=== PATIENT | male | born 1970 | race Caucasian/White ===

== ENCOUNTER 2018-03-28 08:10 | Inpatient (IN) | payer BC ==
[~2018-03-28] VITALS: Ht 170.2 cm; Wt 68.0 kg
[2018-03-28 08:16] VITALS: BP_SYST 132
[2018-03-28] MEDS ORDERED: KETOROLAC TROMETHAMINE 30 MG VIAL IVP ONE (08:45)
[2018-03-28] MEDS ORDERED: ACETAMINOPHEN 650 MG/20.3 ML UDC NG PRN (09:30)
[2018-03-28] MEDS ORDERED: CIPROFLOXACIN LACT 400 MG/D5W 200 ML IV ONE (09:30)
[2018-03-28] MEDS ORDERED: metroNIDAZOLE 500 mg/NS 100 ML IV ONE (09:30)
[2018-03-28] MEDS ORDERED: MORPHINE 2 MG/ML INJ. SYRINGE IVP PRN (09:30)
[2018-03-28] MEDS ORDERED: ONDANSETRON HCL 4 MG/2 ML VIAL IVP PRN ×2 (09:30)
[2018-03-28] MEDS ORDERED: CIPR-211 PO (09:32)
[2018-03-28] MEDS ORDERED: METR500T PO (09:32)
[2018-03-28 09:43] LABS: BASOPHILS # (AUTO) 0.1 K/uL (0.0-0.2); BASOPHILS % (AUTO) 0.6 % (0.0-2.0); EOSINOPHILS # (AUTO) 0.2 K/uL (0.0-0.4); EOSINOPHILS % (AUTO) 2.2 % (0.0-4.0); HEMATOCRIT 45.5 % (36-54); HEMOGLOBIN 15.4 g/dL (14.0-18.0); LYMPHOCYTES # (AUTO) 0.6 K/uL (1.0-5.5); LYMPHOCYTES % (AUTO) 6.6 % (20.5-51.5); MEAN CORPUSCULAR HEMOGLOBIN 30 pg (27-31); MEAN CORPUSCULAR HGB CONC 34 % (32-36); MEAN CORPUSCULAR VOLUME 89 fL (79.0-98.0); MONOCYTES # (AUTO) 0.4 K/uL (0.0-1.0); NEUTROPHILS # (AUTO) 7.3 K/uL (1.8-7.7); NEUTROPHILS % (AUTO) 85.6 % (40.0-70.0); PLATELET COUNT (AUTO) 321 K/uL (130-430); RED BLOOD CELL COUNT(AUTO) 5.09 MIL/uL (4.2-6.2); RED CELL DISTRIBUTION WIDTH 12.1 % (9.0-15.0); WHITE BLOOD COUNT (AUTO) 8.6 K/uL (4.8-10.8)
[2018-03-28 09:57] LABS: CALCIUM 9.2 mg/dL (8.4-11.0); CREATININE 1.12 mg/dL (0.55-1.30); POTASSIUM 3.7 mmol/L (3.5-5.1)
[2018-03-28] MEDS ORDERED: DOCUSATE SODIUM 100 MG CAPSULE PO ONE ×2 (10:00→20:42)
[2018-03-28] MEDS ORDERED: FAMOTIDINE PF 20 MG/2 ML VIAL IVP ONE (10:00)
[2018-03-28 10:02] LABS: ALBUMIN 3.6 g/dL (3.4-4.8); TOTAL BILIRUBIN 0.5 mg/dL (0.0-1.0)
[2018-03-28 10:30] VITALS: BP_SYST 115
[2018-03-28 10:35] VITALS: BP_SYST 115
[2018-03-28] MEDS: NACL 0.9% 1,000 ML IV SCH (11:14)
[2018-03-28] MEDS: PIPERACILLIN/TAZO 3.375/DEX-IS 50 ML IV SCH ×2 (11:33→18:04)
[2018-03-28] MEDS: metroNIDAZOLE 500 mg/NS 100 ML IV SCH ×2 (15:07→21:18)
[2018-03-28 18:20] VITALS: BP_SYST 124
[2018-03-28 20:06] VITALS: BP_SYST 119
[2018-03-28] MEDS: DOCUSATE SODIUM 100 MG CAPSULE PO SCH (20:39)
[2018-03-28] MEDS: FAMOTIDINE PF 20 MG/2 ML VIAL IVP SCH (20:39)
[2018-03-29] MEDS: PIPERACILLIN/TAZO 3.375/DEX-IS 50 ML IV SCH ×5 (00:06→23:41)
[2018-03-29] MEDS: NACL 0.9% 1,000 ML IV SCH ×4 (00:06→23:41)
[2018-03-29 00:12] VITALS: BP_SYST 119
[2018-03-29] MEDS: metroNIDAZOLE 500 mg/NS 100 ML IV SCH ×3 (07:30→21:05)
[2018-03-29 07:52] LABS: CALCIUM 8.5 mg/dL (8.4-11.0); CREATININE 1.09 mg/dL (0.55-1.30); POTASSIUM 4.2 mmol/L (3.5-5.1)
[2018-03-29 07:56] LABS: TOTAL BILIRUBIN 0.3 mg/dL (0.0-1.0)
[2018-03-29 08:00] VITALS: BP_SYST 131
[2018-03-29 08:10] LABS: BASOPHILS % (AUTO) 0.7 % (0.0-2.0); EOSINOPHILS # (AUTO) 0.2 K/uL (0.0-0.4); EOSINOPHILS % (AUTO) 3.8 % (0.0-4.0); HEMATOCRIT 41.3 % (36-54); HEMOGLOBIN 14.1 g/dL (14.0-18.0); LYMPHOCYTES # (AUTO) 1.1 K/uL (1.0-5.5); LYMPHOCYTES % (AUTO) 22.2 % (20.5-51.5); MEAN CORPUSCULAR HEMOGLOBIN 31 pg (27-31); MEAN CORPUSCULAR HGB CONC 34 % (32-36); MEAN CORPUSCULAR VOLUME 91 fL (79.0-98.0); MONOCYTES # (AUTO) 0.6 K/uL (0.0-1.0); MONOCYTES % (AUTO) 11.1 % (1.7-9.3); NEUTROPHILS # (AUTO) 3.2 K/uL (1.8-7.7); NEUTROPHILS % (AUTO) 62.2 % (40.0-70.0); PLATELET COUNT (AUTO) 293 K/uL (130-430); RED BLOOD CELL COUNT(AUTO) 4.56 MIL/uL (4.2-6.2); RED CELL DISTRIBUTION WIDTH 12.4 % (9.0-15.0); WHITE BLOOD COUNT (AUTO) 5.1 K/uL (4.8-10.8)
[2018-03-29] MEDS: FAMOTIDINE PF 20 MG/2 ML VIAL IVP SCH ×2 (12:25→21:04)
[2018-03-29] MEDS: DOCUSATE SODIUM 100 MG CAPSULE PO SCH ×2 (12:27→21:04)
[2018-03-29 13:30] VITALS: BP_SYST 123
[2018-03-29 20:00] VITALS: BP_SYST 119
[2018-03-29 23:20] VITALS: BP_SYST 115
[2018-03-30] MEDS: PIPERACILLIN/TAZO 3.375/DEX-IS 50 ML IV SCH ×3 (05:05→17:24)
[2018-03-30] MEDS: metroNIDAZOLE 500 mg/NS 100 ML IV SCH ×2 (05:48→14:40)
[2018-03-30 07:17] LABS: ALBUMIN 2.8 g/dL (3.4-4.8); BILIRUBIN,DIRECT 0.1 mg/dL (0.0-0.3); TOTAL BILIRUBIN 0.3 mg/dL (0.0-1.0)
[2018-03-30 08:29] VITALS: BP_SYST 117
[2018-03-30] MEDS: DOCUSATE SODIUM 100 MG CAPSULE PO SCH (08:44)
[2018-03-30] MEDS: FAMOTIDINE PF 20 MG/2 ML VIAL IVP SCH (08:46)
[2018-03-30] MEDS: NACL 0.9% 1,000 ML IV SCH (11:56)
[2018-03-30 12:15] VITALS: BP_SYST 104
[2018-03-30 16:11] VITALS: BP_SYST 119
[2018-03-30] MEDS ORDERED: METR500T PO (17:43)
[2018-03-30] MEDS ORDERED: LEVO500T20 PO (17:43)
[2018-03-30 17:58] VITALS: BP_SYST 119
== END 2018-03-30 18:38 | disposition home or self-care (01) | DRG 392 ==
LOC: SED 08:10 → STU 09:22 → SMU 03-29 18:27
PROVIDERS: ADMIT Internal Medicine Hospice and Palliative Medicine; ATTEND Internal Medicine Hospice and Palliative Medicine
DX: K57.80 Diverticulitis of intestine, part unspecified, with perforation and abscess without bleeding (principal); K40.90 Unilateral inguinal hernia, without obstruction or gangrene, not specified as recurrent
CPT/HCPCS: 36415; 80053; 80076; 83690-TC; 85025; 87040-TC; 96365; 96367; 96375; 99285; J0744; J1885; J2543; J3490; J7030